=== PATIENT | female | born 1955 | race American Indian/Alaskan Native ===

== ENCOUNTER 2017-01-12 06:41 | Day surgery (SDC) | payer MEDICAID ==
[~2017-01-12 06:41] MED LIST: TETRACAINE 0.5% OS PRN
--- NOTE | 2017-01-12 07:52 | Anesthesia Consultation ---
Anesthesia Consult and Med Hx Date of service: 01/12/17 - Airway Anesthetic Teeth Evaluation: Good ROM Head & Neck: Adequate Mental/Hyoid Distance: Adequate Mallampati Class: Class II Intubation Access Assessment: Probably Good - Pulmonary Exam CTA: Yes - Cardiac Exam Cardiac Exam: RRR - Pre-Operative Health Status ASA Pre-Surgery Classification: ASA3 Proposed Anesthetic Plan: MAC - Pulmonary Hx Smoking: Yes (former) Hx Asthma: Yes - Cardiovascular System Hx Hypertension: Yes (20years) Hx Coronary Artery Disease: Yes Hx Heart Attack/AMI: Yes (2009) Hx Angina: No (denies chest pain and tightness) - Central Nervous System Hx Psychiatric Problems: No - Other Systems Hx Alcohol Use: No Hx Substance Use: No Hx Cancer: No
--- NOTE | 2017-01-12 07:52 | Anesthesia Day of Surgery ---
Anesthesia Day of Surgery - Day of Surgery Patient Examined: Yes Patient H&P Reviewed: Yes Patient is NPO: Yes
[2017-01-12] MEDS ORDERED: NACL BACTERIOSTATIC INFILTRATI ONE (08:18)
[2017-01-12] MEDS: AK-Dilate OS SCH ×3 (08:22→08:45)
[2017-01-12] MEDS: VIGAMOX OS SCH ×3 (08:22→08:45)
[2017-01-12] MEDS: MYDRIACYL OS SCH ×3 (08:22→08:45)
[2017-01-12] MEDS ORDERED: VERSED ONE (08:46)
[2017-01-12] MEDS ORDERED: SUBLIMAZE ONE (08:46)
[2017-01-12] MEDS ORDERED: NACL P/F VIAL (10 ML) 10 ML ONE (09:15)
--- NOTE | 2017-01-12 09:55 | Operative Report ---
Operative Report Operative Report: PATIENT'S NAME: DATE OF : DATE OF SURGERY: 01/12/2017 PREOPERATIVE DIAGNOSIS: Cataract left eye POSTOPERATIVE DIAGNOSIS: Same OPERATIVE PROCEDURE: Phacoemulsification with intraocular lens implantation, left eye SURGEON: Love Schwartz M.D. CHEERLEADING COACH SURGEON: Siri Lens: [id number] 20.0 D ANESTHESIA: Monitored anesthesia care in combination with topical and intracameral anesthesia because of the established specific risk of reflux, arrhythmias, or anxiety attacks associated with ocular manipulation, as well as the difficulty of the independent film maker to manage such potentially catastrophic events while simultaneously attempting to complete the surgical procedure and was deemed necessary for the patient's safety to have an Water Resources Program Director present during the procedure whenever possible. An Water Resources Program Director was utilized to regulate the intravenous sedation of the patient so the patient was cooperative yet not asleep in order for the patient to successfully maintain fixation of the eye on the operating light of the microscope. COMPLICATIONS: No surgical complications No blood loss. ALLERGIES: Sulfa codeine PROGNOSIS: Excellent INDICATIONS FOR SURGERY: The patient is undergoing surgery in the hopes of eliminating or improving these visual difficulties. PROCEDURE: After arriving at the surgery center, the patient was given topical anesthetic and dilating drops, as noted in the record. The patient was then taken into the operating room and given more anesthetic drops. The eyelids , lashes, and lid margins were scrubbed with Betadine solution, and the patient was draped. The Nurse Water Resources Program Director administered IV sedation and monitored the patient during the procedure. The eye was then fixated with a 0.12, and a stab incision was made in the peripheral clear cornea into the anterior chamber. This was made on my left side. Viscoelastic was next used to fill the anterior chamber. The eye was once again fixated with the 0.12 forceps and a keratome was used make an incision in clear cornea peripherally on my right hand side temporally. The capsule forceps were used to open the central anterior capsule and then make a continuous round capsulotomy. Hydrodissection was carried out utilizing a cannula and balanced salt solution to delineate the cortical material from the capsule and the nucleus from the cortical material. The phaco tip was introduced into the eye and used to remove the anterior cortical material in the area of the capsulotomy. Then the phaco tip was buried into the nucleus, and a chopping instrument was introduced into the eye and used to provide countertraction in the nucleus between this instrument and the phaco tip fracturing the nucleus. This procedure was repeated multiple times, providing multiple small segments of the lens, and then the phaco tip was used to remove each of these segments. An I/A tip was then used to remove the remaining cortex. The anterior chamber was refilled with viscoelastic. An one-piece, acrylic intraocular lens was then placed into an inserting cartridge. The tip of the inserting cartridge was introduced into the keratome incision and into the anterior chamber. The implant was gently advanced through the cartridge and into the eye, where it unfolded, and both haptics were placed in the capsular bag, where it centered nicely and appeared to be well fixated. After placement of the intraocular lens, the I~and~A handpiece was placed back into the eye and used to remove the viscoelastic, including viscoelastic that was behind the optic of the intraocular lens. The anterior chamber was then filled with balanced salt solution, and hydration of the wound was used to cause swelling of the wound and more appropriate watertight closure. When the wound was found to be firm, the patient was asked to comment on how bright the light was. If there was no light perception at all or if the light was substantially dimmer than during the rest of the surgery, the amount of fluid in the eye was decompressed to lower the intraocular pressure until the patient could see the bright light again. This was done to avoid any damage or decreased blood flow to the optic nerve. MEDICATIONS APPLIED AT END OF SURGERY: One drop of Pred Forte and Vigamox The patient was given a shield to wear at night and was instructed not to rub or push on the eye. DISCHARGE SUMMARY: The patient was released in stable condition. The patient and those with the patient were given a written sheet of postoperative instructions and counseling on any abnormal laboratory studies. The patient is to see us tomorrow for follow-up in the office and is to call immediately for any difficulties. Love Schwartz M.D. Date
--- NOTE | 2017-01-12 09:56 | Short Stay Summary ---
Short Stay Documentation Date of service: 01/12/17 - History H&P: obtained from office - Allergies and Medications Current Medications: Allergies codeine Allergy (Verified 01/12/17 08:48) Rash PT STATES SHE BREAKS OUT IN A COLD SWEAT AND HAS INCREASED HEART RATE. Sulfa (Sulfonamide Antibiotics) Allergy (Verified 01/12/17 08:48) Rash Home Medications Medication Instructions Recorded Confirmed Last Taken Type Albuterol Sulfate [Ventolin HFA] 2 puff IH PRN PRN 01/12/17 01/12/17 01/12/17 05 :30 History Aspirin [Lo-Dose Aspirin EC] 81 mg PO DAILY 01/12/17 01/12/17 01/11/17 History AtorvaSTATin [Lipitor] 40 mg PO QHS 01/12/17 01/12/17 01/11/17 History Bumetanide [Bumetanide] 1 tab PO PRN PRN 01/12/17 01/12/17 2 Weeks Ago History Carvedilol Nicu (1.67 mg/ml) 25 mg PO BID 01/12/17 01/12/17 01/11/17 22:00 History [Coreg NICU dilution] Chlorthalidone [Chlorthalidone] 1 tab PO DAILY 01/12/17 01/12/17 01/11/17 History Lisinopril [Lisinopril] 1 tab PO DAILY 01/12/17 01/12/17 01/11/17 History Nitroglycerin [Nitrostat] 0.4 mg SL Q5M PRN 01/12/17 01/12/17 3 Weeks Ago History Potassium Chloride [Klor-Con 8 meq PO DAILY 01/12/17 01/12/17 01/11/17 History Sprinkle] Active Medications Moxifloxacin HCl (Vigamox) 1 drops OS Q5MIN KURT Stop: 01/14/17 06:01 Last Admin: 01/12/17 08:45 Dose: 1 drops Phenylephrine HCl (Ak-Dilate) 1 drops OS Q5MIN KURT Stop: 01/14/17 06:01 Last Admin: 01/12/17 08:45 Dose: 1 drops Prednisolone Acetate (Pred Forte 1%) 1 drops OS QID KURT Tetracaine HCl (Tetracaine 0.5%) 1 drops OS Q5M PRN PRN Reason: Analgesia Last Admin: 01/12/17 08:21 Dose: 1 drops Tropicamide (Mydriacyl) 1 drops OS Q5MIN KURT Stop: 01/14/17 06:01 Last Admin: 01/12/17 08:45 Dose: 1 drops - Brief post op/procedure progress note Date of procedure: 01/12/17 Pre-op diagnosis: left cataract Post-op diagnosis: same Procedure: Phacoemulsification with intraocular lens insertion left eye Anesthesia: MAC Surgeon: VARUN WHITMORE Estimated blood loss: none Pathology: none Condition: stable - Disposition Condition at discharge: Good Disposition: DC-01 TO HOME OR SELFCARE - Discharge Diagnoses (1) Cataract Status: Resolved Qualifiers: Cataract type: age-related Age-related cataract type: nuclear Infantile/ juvenile cataract type: I Traumatic cataract type: T Complicated cataract type: C Secondary cataract type: S Laterality: left Qualified Code(s): H25.12 - Age-related nuclear cataract, left eye Short Stay Discharge Plan Follow up with: PRIMARY CARE, [Primary Care Provider] - 7 Days
[2017-01-12] MEDS ORDERED: PRED FORTE 1% OS SCH (10:00)
[2017-01-12 10:01] VITALS: BP 163/85
--- NOTE | 2017-01-12 10:44 | Post Anesthesia Evaluation ---
- Post Anesthesia Evaluation Patient Participated: Yes Airway Patent: Yes Stable Respiratory Function: Yes Temp > 96.8F: Yes Pain Manageable: Yes Adequeate Hydration: Yes Anesthesia Complications: No
[2017-01-12] MEDS ORDERED: PRED FORTE 1% ONE (13:00)
== END 2017-01-12 10:40 | disposition home or self-care (01) ==
LOC: OR 06:41
DX: H25.12 Age-related nuclear cataract, left eye (principal); J45.909 Unspecified asthma, uncomplicated; M19.90 Unspecified osteoarthritis, unspecified site; I10 Essential (primary) hypertension; I25.10 Atherosclerotic heart disease of native coronary artery without angina pectoris; I25.2 Old myocardial infarction; Z88.6 Allergy status to analgesic agent; Z88.2 Allergy status to sulfonamides; Z87.891 Personal history of nicotine dependence
CPT/HCPCS: 66984; J2250; J3010; V2632

== ENCOUNTER 2019-02-18 14:17 | Observation (INO) | payer MEDICAID ==
--- NOTE | 2019-02-18 14:42 | Emergency Department Report ---
Blank Doc - Documentation Documentation: 63-year-old female that presents with right ear ache and decreased hearing and also chest pain and SOB. This initial assessment/diagnostic orders/clinical plan/treatment(s) is/are subject to change based on patient's health status, clinical progression and re- assessment by fellow clinical providers in the ED. Further treatment and workup at subsequent clinical providers discretion. Patient/guardians urged not to elope from the ED as their condition may be serious if not clinically assessed and managed. Initial orders include: 1- Patient sent to MAIN ED for further evaluation and treatment 2- labs 3- CXR 4- EKG
[2019-02-18 15:52] LABS: Basophils % (Auto) 0.4 % (0.0-1.8); Eosinophils # (Auto) 0.1 K/mm3 (0.0-0.4); Eosinophils % (Auto) 1.6 % (0.0-4.3); Hematocrit 40.3 % (30.3-42.9); Hemoglobin 13.2 gm/dl (10.1-14.3); Lymphocytes # (Auto) 1.5 K/mm3 (1.2-5.4); Lymphocytes % (Auto) 22.2 % (13.4-35.0); Mean Corpuscular HGB Conc 33 % (30-34); Mean Corpuscular Volume 85 fl (79-97); Monocytes # (Auto) 0.4 K/mm3 (0.0-0.8); Monocytes % (Auto) 5.6 % (0.0-7.3); Platelet Count 283 K/mm3 (140-440); Red Blood Count 4.74 M/mm3 (3.65-5.03); Red Cell Distribution Width 13.4 % (13.2-15.2)
[2019-02-18 16:03] LABS: INR 0.97 (0.87-1.13)
--- NOTE | 2019-02-18 16:12 | XRay Report ---
CHEST 2 VIEWS INDICATION: Chest Pain. COMPARISON: None FINDINGS: Support devices: None. Heart: Within normal limits. Lungs/pleura: No acute air space or interstitial disease. No pneumothorax. Additional findings: None. IMPRESSION: No acute findings. Signer Name: Lewis Serrato Jr, MD Signed: 02/18/2019 4:07 PM Workstation Name: [id number]
[2019-02-18 16:14] LABS: Alanine Aminotransferase 22 units/L (7-56); Albumin 3.5 g/dL (3.9-5); BUN/Creatinine Ratio 13; Blood Urea Nitrogen 9 mg/dL (7-17); Calcium 9.2 mg/dL (8.4-10.2); Hemolysis Index 30
[2019-02-18] MEDS ORDERED: ASPIRIN 81 MG TAB CHEW PO ONE (22:06)
[2019-02-18] MEDS ORDERED: NITROGLYCERIN 0.4 MG TAB SUBL SL PRN (22:06)
--- NOTE | 2019-02-18 22:21 | Emergency Department Report ---
ED Neuro Deficit HPI - General Chief Complaint: Chest Pain Stated Complaint: CHEST PAIN/RT EAR CANT HEAR Time Seen by Provider: 02/18/19 14:40 Source: patient Mode of arrival: Ambulatory Limitations: No Limitations - History of Present Illness Initial Comments: Mrs. Cobb is a 63 yo female with hx of HTN, osteoarthritis, asthma, DVT, GERD, AMI s/p PCI/cardiac stent 2009, HTN who presents right ear hearing loss, unsteady gait and chest pressure. This morning, Mrs. Cobb awakened 2 AM. She noticed that she was unable to hear out of her right ear. She then developed nausea and unsteady gait. Subsequently she developed chest pressure and sweats. The hearing is improved but sporadically in and out. She's had persistent chest pressure 7 out of 10 throughout the day. She denies numbness and weakness. She denies blurry vision. Her gait did improve. She normally takes her blood pressure medications at night. She does not remember if she took her home medications last night. She does have not have a primary physician. She is followed by Dr. Neely skein spooler [facility]. In 2009 when she had her acute cardiac event, she underwent care at [facility]. -: This morning (02:00 AM) Location: ataxia, other (right-sided hearing loss) History of same: No Place: home Severity: moderate Improves With: time Worsens With: none On Anticoagulants: No (asprin only) Context: other (awakened with symptoms this morning) Associated Symptoms: chest pain, other (nausea, sweats, hearing loss) - Related Data Home Medications: Home Medications Medication Instructions Recorded Confirmed Last Taken Albuterol Sulfate [Ventolin HFA] 2 puff IH PRN PRN 01/12/17 01/12/17 01/12/17 05:30 Aspirin [Lo-Dose Aspirin EC] 81 mg PO DAILY 01/12/17 01/12/17 01/11/17 AtorvaSTATin [Lipitor] 40 mg PO QHS 01/12/17 01/12/17 01/11/17 Bumetanide 1 tab PO PRN PRN 01/12/17 01/12/17 2 Weeks Ago ~12/29/16 Chlorthalidone 1 tab PO DAILY 01/12/17 01/12/17 01/11/17 Lisinopril 1 tab PO DAILY 01/12/17 01/12/17 01/11/17 Nitroglycerin [Nitrostat] 0.4 mg SL Q5M PRN 01/12/17 01/12/17 3 Weeks Ago ~12/22/16 Potassium Chloride [Klor-Con 8 meq PO DAILY 01/12/17 01/12/17 01/11/17 Sprinkle] carvediloL NICU (1.67 MG/ML) 25 mg PO BID 01/12/17 01/12/17 01/11/17 22:00 [Coreg NICU dilution] Allergies/Adverse Reactions: Allergies Allergy/AdvReac Type Severity Reaction Status Date / Time codeine Allergy Rash Verified 01/12/17 08:48 Sulfa (Sulfonamide Allergy Rash Verified 01/12/17 08:48 Antibiotics) ED Review of Systems ROS: Stated complaint: CHEST PAIN/RT EAR CANT HEAR Other details as noted in HPI Comment: All other systems reviewed and negative Constitutional: denies: fever, malaise ENT: other (right ear hearing loss) Cardiovascular: chest pain Gastrointestinal: nausea Neurological: abnormal gait ED Past Medical Hx - Past Medical History Previous Medical History?: Yes Hx Hypertension: Yes (20years) Hx Heart Attack/AMI: Yes (2009) Hx Deep Vein Thrombosis: Yes (2014) Hx GERD: Yes Hx Arthritis: Yes (knees) Hx Asthma: Yes - Surgical History Past Surgical History?: Yes Hx Coronary Stent: Yes Hx Cholecystectomy: Yes - Family History Family history: CAD/[place], diabetes, hypertension, vascular disease - Social History Smoking Status: Never Smoker Substance Use Type: None Other Social History: disabled - Medications Home Medications: Home Medications Medication Instructions Recorded Confirmed Last Taken Type Albuterol Sulfate [Ventolin HFA] 2 puff IH PRN PRN 01/12/17 01/12/17 01/12/17 05:30 History Aspirin [Lo-Dose Aspirin EC] 81 mg PO DAILY 01/12/17 01/12/17 01/11/17 History AtorvaSTATin [Lipitor] 40 mg PO QHS 01/12/17 01/12/17 01/11/17 History Bumetanide 1 tab PO PRN PRN 01/12/17 01/12/17 2 Weeks Ago History ~12/29/16 Chlorthalidone 1 tab PO DAILY 01/12/17 01/12/17 01/11/17 History Lisinopril 1 tab PO DAILY 01/12/17 01/12/17 01/11/17 History Nitroglycerin [Nitrostat] 0.4 mg SL Q5M PRN 01/12/17 01/12/17 3 Weeks Ago History ~12/22/16 Potassium Chloride [Klor-Con 8 meq PO DAILY 01/12/17 01/12/17 01/11/17 History Sprinkle] carvediloL NICU (1.67 MG/ML) 25 mg PO BID 01/12/17 01/12/17 01/11/17 22:00 History [Coreg NICU dilution] ED Neuro Physical Exam - General Limitations: No Limitations General appearance: alert, in no apparent distress Suspected Stroke: Yes - Head Head exam: Present: atraumatic, normocephalic - Eye Eye exam: Present: normal appearance - ENT ENT exam: Present: mucous membranes moist, TM's normal bilaterally - Neck Neck exam: Present: normal inspection, full ROM - Respiratory Respiratory exam: Present: normal lung sounds bilaterally. Absent: respiratory distress, wheezes, rales, rhonchi - Cardiovascular Cardiovascular Exam: Present: regular rate, normal rhythm, normal heart sounds. Absent: systolic murmur, diastolic murmur, rubs, gallop - GI/Abdominal GI/Abdominal exam: Present: soft, normal bowel sounds. Absent: distended, tenderness, guarding, rebound - Extremities Exam Extremities exam: Present: normal inspection - Neurological Exam Neurological exam: Present: alert, oriented X3 - NIHSS Assessment Interval: Baseline 1a. Level of Consciousness: alert/keenly responsive 1b. LOC Questions: answers both correctly 1c. LOC Commands: performs tasks correctly 2. Best Gaze: normal 3. Visual: no visual loss 4. Facial Palsy: normal symmetrical movement 5b. Motor Arm Right: no drift 5a. Motor Arm Left: no drift 6a. Motor Leg Left: no drift 6b. Motor Leg Right: no drift 7. Limb Ataxia: absent 8. Sensory: normal 9. Best Language: no aphasia 10. Dysarthria: normal 11. Extinction/Inattention: no abnormality Total Score: 0 Stroke Severity: No Stroke Symptoms - Psychiatric Psychiatric exam: Present: normal affect, normal mood - Skin Skin exam: Present: warm, dry, intact, normal color. Absent: rash ED Course Vital Signs 02/18/19 02/18/19 02/18/19 14:39 19:15 21:15 Temperature 97.6 F Pulse Rate 97 H 91 H 99 H Respiratory 20 18 Rate Blood Pressure 190/105 Blood Pressure 182/110 [Right] O2 Sat by Pulse 98 99 Oximetry 02/18/19 02/18/19 02/18/19 21:30 21:46 22:00 Temperature Pulse Rate 94 H 91 H Respiratory 18 14 Rate Blood Pressure 156/96 156/96 156/96 Blood Pressure [Right] O2 Sat by Pulse 100 100 100 Oximetry 02/18/19 02/18/19 22:16 22:30 Temperature Pulse Rate Respiratory Rate Blood Pressure 165/98 165/98 Blood Pressure [Right] O2 Sat by Pulse 99 100 Oximetry - Lab Data Result diagrams: 02/18/19 15:08 02/18/19 15:08 Lab Results 02/18/19 02/18/19 02/18/19 Range/Units 15:08 15:08 15:08 WBC 6.7 (4.5-11.0) K/mm3 RBC 4.74 (3.65-5.03) M/mm3 Hgb 13.2 (10.1-14.3) gm/dl Hct 40.3 (30.3-42.9) % MCV 85 (79-97) fl MCH 28 (28-32) pg MCHC 33 (30-34) % RDW 13.4 (13.2-15.2) % Plt Count 283 (140-440) K/mm3 Lymph % (Auto) 22.2 (13.4-35.0) % [place] % (Auto) 5.6 (0.0-7.3) % Eos % (Auto) 1.6 (0.0-4.3) % Baso % (Auto) 0.4 (0.0-1.8) % Lymph # 1.5 (1.2-5.4) K/mm3 [place] # 0.4 (0.0-0.8) K/mm3 Eos # 0.1 (0.0-0.4) K/mm3 Baso # 0.0 (0.0-0.1) K/mm3 Seg Neutrophils % 70.2 H (40.0-70.0) % Seg Neutrophils # 4.7 (1.8-7.7) K/mm3 PT 12.8 (12.2-14.9) Sec. INR 0.97 (0.87-1.13) APTT 32.0 (24.2-36.6) Sec. Thrombin Time (15.1-19.6) Sec. Sodium 141 (137-145) mmol/L Potassium 4.6 (3.6-5.0) mmol/L Chloride 103.7 (98-107) mmol/L Carbon Dioxide 22 (22-30) mmol/L Anion Gap 20 mmol/L BUN 9 (7-17) mg/dL Creatinine 0.7 (0.7-1.2) mg/dL Estimated GFR > 60 ml/min BUN/Creatinine Ratio 13 % Glucose 107 H (65-100) mg/dL Calcium 9.2 (8.4-10.2) mg/dL Total Bilirubin 0.40 (0.1-1.2) mg/dL AST 28 (5-40) units/L ALT 22 (7-56) units/L Alkaline Phosphatase 91 (35-129) units/L Troponin T < 0.010 (0.00-0.029) ng/mL Total Protein 7.4 (6.3-8.2) g/dL Albumin 3.5 L (3.9-5) g/dL Albumin/Globulin Ratio 0.9 % 02/18/19 02/18/19 Range/Units 16:49 22:43 WBC (4.5-11.0) K/mm3 RBC (3.65-5.03) M/mm3 Hgb (10.1-14.3) gm/dl Hct (30.3-42.9) % MCV (79-97) fl MCH (28-32) pg MCHC (30-34) % RDW (13.2-15.2) % Plt Count (140-440) K/mm3 Lymph % (Auto) (13.4-35.0) % [place] % (Auto) (0.0-7.3) % Eos % (Auto) (0.0-4.3) % Baso % (Auto) (0.0-1.8) % Lymph # (1.2-5.4) K/mm3 [place] # (0.0-0.8) K/mm3 Eos # (0.0-0.4) K/mm3 Baso # (0.0-0.1) K/mm3 Seg Neutrophils % (40.0-70.0) % Seg Neutrophils # (1.8-7.7) K/mm3 PT 12.1 L (12.2-14.9) Sec. INR 0.90 (0.87-1.13) APTT 24.1 L (24.2-36.6) Sec. Thrombin Time 15.4 (15.1-19.6) Sec. Sodium (137-145) mmol/L Potassium (3.6-5.0) mmol/L Chloride (98-107) mmol/L Carbon Dioxide (22-30) mmol/L Anion Gap mmol/L BUN (7-17) mg/dL Creatinine (0.7-1.2) mg/dL Estimated GFR ml/min BUN/Creatinine Ratio % Glucose (65-100) mg/dL Calcium (8.4-10.2) mg/dL Total Bilirubin (0.1-1.2) mg/dL AST (5-40) units/L ALT (7-56) units/L Alkaline Phosphatase (35-129) units/L Troponin T < 0.010 (0.00-0.029) ng/mL Total Protein (6.3-8.2) g/dL Albumin (3.9-5) g/dL Albumin/Globulin Ratio % 02/18/19 22:22 EKG obtained 1425 Sinus tachycardia rate 100 normal axis normal intervals no ST elevation nonspecific T wave pattern poor R-wave progression in the anterior leads low voltage QRS - Radiology Data Radiology results: report reviewed Chest radiograph: No acute process CT angiogram of the chest and abdomen: No acute aortic dissection or aneurysm, dilated esophagus - Medical Decision Making 1. right sided hearing loss, unsteady gait: DDX: TIA/CVA, MS, peripheral laby rinthitis, tumor will need neuro w/u and neuro checks, ASA provided in the ED, due to time of onset of improving symptoms > 12 hours, TPA not indicated as CVA is indeed a leading consideration, teleneurologist evaluated patient in the emergency department. 2. CHest pressure with hx of AMI/PCI must consider ACS, but atypical with persistent pain at rest, CT angio abdomen/chest negative for acute aortic dissection, I have consulted Dr. Cota [place] Heart skein spooler on-call. He agreed to arrange for inpatient consultation. Difficult to unify the findings of chest pressure, hearing loss, unsteady gait, however, if HTN has been uncontrolled then malignant hypertension could be the ultimate cause of this symptoms Critical care attestation.: If time is entered above; I have spent that time in minutes in the direct care of this critically ill patient, excluding procedure time. ED Disposition Clinical Impression: TIA (transient ischemic attack), Acute coronary syndrome Disposition: 09 OP ADMIT IP TO THIS HOSP Is pt being admited?: Yes Does the pt Need Aspirin: No Condition: Stable
[2019-02-18 23:13] LABS: INR 0.9 (0.87-1.13)
[2019-02-18 23:14] LABS: Partial Thromboplastin Time 24.1 Sec. (24.2-36.6); Thrombin Time 15.4 Sec. (15.1-19.6)
--- NOTE | 2019-02-18 23:23 | Cat Scan Report ---
CT head without contrast INDICATION : Strokelike symptoms. TECHNIQUE: Axial imaging performed from the skull apex through the skull base without the use of con trast. All CT examinations performed at this facility utilize dose modulation, iterative reconstruct ion or weight-based dosing, when appropriate, to reduce radiation dose to as low as reasonably achiev able. COMPARISON: None FINDINGS: No acute intracranial hemorrhage or parenchymal abnormality. Ventricles are normal in si ze and appear symmetric. Soft tissues including the orbits appear normal. No acute osseous abnorm ality. Sinuses and mastoid air cells are clear. IMPRESSION: No acute abnormality. Signer Name: John Thacker MD Signed: 02/18/2019 11:19 PM Workstation Name: [id number]
--- NOTE | 2019-02-18 23:45 | History and Physical Report ---
History of Present Illness Date of examination: 02/18/19 History of present illness: 63-year-old woman with a history of hypertension, coronary artery disease, GERD comes to the ER complaining of decrease hearing in the right ear but symptoms have improved. Also complined of unsteady gait, no riningin in the eAR, URTI. Complaint of chest pain, in the epigastric area, feels like someone sitting on the chest, constant, intensity 5/10, no radiation, cannot identify exacerbating or relieving factor., Admits to nausea, shortness of breath, diaphoresis, No palpitation. She had a stress test done years ago My review of systemsr Constitutional: no weight loss, fever, chills Ears, eyes, nose, mouth and throat: no nasal congestion, no nasal discharge, no sinus pressure, blurry vision, diplopia Neck: No neck pain or rigidity. Cardiovascular: No palpitations Respiratory: No cough Gastrointestinal: No hematochezia, abdominal pain Genitourinary : no dysuria, frequency , hematuria Musculoskeletal: no muscle ache , joint pain Integumentary: no rash, no pruritis Neurological: no parathesias, focal weakness Endocrine: no cold or heat intolerance, no polyuria or polydipsia Hematologic/Lymphatic: no easy bruising, no easy bleeding, no gland swelling Allergic/Immunologic: no urticaria, no angioedema. PAST MEDICAL HISTORY :hypertension, coronary artery disease, GERD PAST SURGICAL HISTORY: Cholecystectomy SOCIAL HISTORY: No drugs, tobacco, alcohol FAMILY HISTORY: Hypertension Medications and Allergies Allergies Allergy/AdvReac Type Severity Reaction Status Date / Time codeine Allergy Rash Verified 01/12/17 08:48 Sulfa (Sulfonamide Allergy Rash Verified 01/12/17 08:48 Antibiotics) Home Medications Medication Instructions Recorded Confirmed Last Taken Type Albuterol Sulfate [Ventolin HFA] 2 puff IH PRN PRN 01/12/17 02/19/19 01/12/17 05:30 History Aspirin [Lo-Dose Aspirin EC] 81 mg PO DAILY 01/12/17 02/19/19 01/11/17 History AtorvaSTATin [Lipitor] 40 mg PO QHS 01/12/17 02/19/19 01/11/17 History Bumetanide 1 tab PO PRN PRN 01/12/17 02/19/19 2 Weeks Ago History ~12/29/16 Chlorthalidone 1 tab PO DAILY 01/12/17 02/19/19 01/11/17 History Lisinopril 1 tab PO DAILY 01/12/17 02/19/19 01/11/17 History Nitroglycerin [Nitrostat] 0.4 mg SL Q5M PRN 01/12/17 02/19/19 3 Weeks Ago History ~12/22/16 Potassium Chloride [Klor-Con 8 meq PO DAILY 01/12/17 02/19/19 01/11/17 History Sprinkle] carvediloL NICU (1.67 MG/ML) 25 mg PO BID 01/12/17 02/19/19 01/11/17 22:00 History [Coreg NICU dilution] Active Meds: Active Medications Nitroglycerin (Nitrostat) 0.4 mg SL .Q5MIN PRN PRN Reason: Chest Pain Exam - Physical Exam Narrative exam: Gen. appearance: Patient lying in bed, no apparent distress HEENT: Normocephalic, atraumatic, hearing intact, pupils equally round and reactive to light, extraocular movement intact, and no sclericterus,. No JVD or thyromegaly or nodule,neck supple, no carotid bruit ,mucous membranes moist, no exudate or erythema Heart: S1, S2, regular rate and rhythm Lungs: Clear bilaterally, breathing comfortable Abdomen: Positive bowel sounds, non-tender, nondistended, no organomegaly Extremity:no edema cyanosis, clubbing Skin: no rash, dry, warm Neuro: Oriented 3, cranial nerves II-12 intact, speech is fluent, motor and sensory intact - Constitutional Vitals: Temp Pulse Resp BP Pulse Ox 97.6 F 91 H 14 165/98 100 02/18/19 14:39 02/18/19 21:46 02/18/19 21:46 02/18/19 22:30 02/18/19 22:30 Results - Labs CBC & Chem 7: 02/19/19 04:42 02/19/19 04:42 Labs: Abnormal lab results 02/18/19 02/18/19 02/18/19 Range/Units 15:08 15:08 22:43 Seg Neutrophils % 70.2 H (40.0-70.0) % PT 12.1 L (12.2-14.9) Sec. APTT 24.1 L (24.2-36.6) Sec. Glucose 107 H (65-100) mg/dL Albumin 3.5 L (3.9-5) g/dL - Imaging and Cardiology CT scan - abdomen: report reviewed CT scan - chest: report reviewed CT scan - pelvis: report reviewed Assessment and Plan Assessment TIA Chest pain CAD Hypertension uncontrolled Plan Admit to medicine Obtain MRI of the head, and neck, echo Start aspirin, statin IV hydralazine as needed for blood pressure control Consult neurology, physical and occupational, speech therapy Check cardiac enzymes, stress test DVT prophylaxis
[2019-02-19] MEDS ORDERED: hydrALAZINE 20 MG/1 ML INJ IV PRN (01:45)
[2019-02-19] MEDS ORDERED: hydrALAZINE 20 MG/1 ML INJ ONE (02:08)
[2019-02-19] MEDS ORDERED: ACETAMINOPHEN 325 MG TAB PO PRN (02:30)
[2019-02-19] MEDS ORDERED: ONDANSETRON 4 MG/2 ML INJ IV PRN (02:30)
--- NOTE | 2019-02-19 03:34 | Consultation ---
History of Present Illness Consult date: 02/19/19 History of present illness: [facility] stroke Alert Impression: hearing loss and ataxia, with hTN, and systolic of 190/80 she has improved since that time, and she has chest pressure that has also developed throughout the day. CTA chest is negative. MRI and MRA head/neck is pending Recs: CTA chest - rule out dissection MRI brain and MRA head/neck when able ECHO A1c LDL HPI: Since 2 am pt has been ataxic this morning. She has htn. CT head Neuro: Alert and oriented, x 4, visual clemens normal. The paient is able to move all four extremities without an issue. HG - intact VF- intact Facial - intact UE, LE within normal No ataxia, aphasia, dysarthria, Medications and Allergies Allergies Allergy/AdvReac Type Severity Reaction Status Date / Time codeine Allergy Rash Verified 01/12/17 08:48 Sulfa (Sulfonamide Allergy Rash Verified 01/12/17 08:48 Antibiotics) Home Medications Medication Instructions Recorded Confirmed Last Taken Type Albuterol Sulfate [Ventolin HFA] 2 puff IH PRN PRN 01/12/17 02/19/19 01/12/17 05:30 History Aspirin [Lo-Dose Aspirin EC] 81 mg PO DAILY 01/12/17 02/19/19 01/11/17 History AtorvaSTATin [Lipitor] 40 mg PO QHS 01/12/17 02/19/19 01/11/17 History Bumetanide 1 tab PO PRN PRN 01/12/17 02/19/19 2 Weeks Ago History ~12/29/16 Chlorthalidone 1 tab PO DAILY 01/12/17 02/19/19 01/11/17 History Lisinopril 1 tab PO DAILY 01/12/17 02/19/19 01/11/17 History Nitroglycerin [Nitrostat] 0.4 mg SL Q5M PRN 01/12/17 02/19/19 3 Weeks Ago History ~12/22/16 Potassium Chloride [Klor-Con 8 meq PO DAILY 01/12/17 02/19/19 01/11/17 History Sprinkle] carvediloL NICU (1.67 MG/ML) 25 mg PO BID 01/12/17 02/19/19 01/11/17 22:00 History [Coreg NICU dilution] Active Meds: Active Medications Acetaminophen (Tylenol) 650 mg PO Q4H PRN PRN Reason: Pain MILD(1-3)/Fever >100.5/LEE Aspirin (Aspirin) 325 mg PO QDAY [facility] Atorvastatin Calcium (Lipitor) 40 mg PO QHS [facility] Enoxaparin Sodium (Enoxaparin) 40 mg SUB-Q QDAY [facility] Hydralazine HCl (Apresoline) 5 mg IV Q6H PRN PRN Reason: Hypertension Last Admin: 02/19/19 02:00 Dose: 5 mg Documented by: Nitroglycerin (Nitrostat) 0.4 mg SL .Q5MIN PRN PRN Reason: Chest Pain Ondansetron HCl (Zofran) 4 mg IV Q8H PRN PRN Reason: Nausea And Vomiting Sodium Chloride (Sodium Chloride Flush Syringe 10 Ml) 10 ml IV BID [facility] Sodium Chloride (Sodium Chloride Flush Syringe 10 Ml) 10 ml IV PRN PRN PRN Reason: LINE FLUSH Physical Examination - Vital Signs Vital Signs: Vital Signs Temp Pulse Resp BP Pulse Ox 97.6 F 97 H 20 190/105 98 02/18/19 14:39 02/18/19 14:39 02/18/19 14:39 02/18/19 14:39 02/18/19 14:39 Results - Laboratory Findings CBC and BMP: 02/18/19 15:08 02/18/19 15:08 Abnormal Lab Findings: Abnormal Labs 02/18/19 02/18/19 02/18/19 15:08 15:08 22:43 Seg Neutrophils % 70.2 H PT 12.1 L APTT 24.1 L Glucose 107 H Albumin 3.5 L
[2019-02-19 05:38] LABS: Basophils # (Auto) 0.1 K/mm3 (0.0-0.1); Basophils % (Auto) 1.2 % (0.0-1.8); Eosinophils # (Auto) 0.3 K/mm3 (0.0-0.4); Eosinophils % (Auto) 3.7 % (0.0-4.3); Hematocrit 37.2 % (30.3-42.9); Hemoglobin 12.3 gm/dl (10.1-14.3); Lymphocytes # (Auto) 2.2 K/mm3 (1.2-5.4); Lymphocytes % (Auto) 27.7 % (13.4-35.0); Mean Corpuscular HGB Conc 33 % (30-34); Mean Corpuscular Volume 85 fl (79-97); Monocytes # (Auto) 0.5 K/mm3 (0.0-0.8); Monocytes % (Auto) 6.7 % (0.0-7.3); Platelet Count 274 K/mm3 (140-440); Red Cell Distribution Width 13.5 % (13.2-15.2)
[2019-02-19 06:00] LABS: BUN/Creatinine Ratio 13; Blood Urea Nitrogen 8 mg/dL (7-17); Calcium 8.6 mg/dL (8.4-10.2); Hemolysis Index 4
[2019-02-19] MEDS ORDERED: REGADENOSON 0.4 MG/5 ML INJ IV ONE (08:28)
[2019-02-19] MEDS ORDERED: ACETAMINOPHEN 325 MG TAB ONE (08:48)
[2019-02-19] MEDS ORDERED: ASPIRIN 325 MG TAB PO SCH (10:00)
[2019-02-19] MEDS ORDERED: ENOXAPARIN 40 MG/0.4 ML INJ SUB-Q SCH (10:00)
--- NOTE | 2019-02-19 13:11 | Magnetic Resonance Report ---
NONENHANCED MR SCAN OF THE BRAIN: INDICATION / CLINICAL INFORMATION: stroke. Hearing loss on the right side; unsteady gait TECHNIQUE: Multiplanar, multisequence MR images of the brain were noncontrast MRI brain normal brain MR obtained . COMPARISON: CT scan obtained at on 02/18/2019 FINDINGS: BRAIN / INTRACRANIAL CONTENTS: No acute ischemia, acute hemorrhage, mass effect, midline shift, or hy drocephalus. No chronic infarct or atrophy. No significant white matter abnormality. In the 3-D fiesta images, 7th and 8th cranial nerve bundles are normal. Motion related artifacts obsc ure the details in the skin section images through the temporal bones. CRANIOCERVICAL JUNCTION: No significant abnormality. VASCULAR FLOW-VOIDS: No significant abnormality. ORBITS: No significant abnormality of visualized orbits. SINUSES / MASTOIDS: No significant abnormality of visualized sinuses and mastoid air cells. ADDITIONAL FINDINGS: None. IMPRESSION: 1. I do not see focal parenchymal lesion in the brain. 7th and 8th cranial nerve bundles are normal in Limited thin section images through the temporal bone s. Signer Name: Sher Shaw MD Signed: 02/19/2019 1:07 PM Workstation Name: [id number]
--- NOTE | 2019-02-19 13:13 | Magnetic Resonance Report ---
MRA HEAD WITHOUT CONTRAST HISTORY: Right-sided hearing loss COMPARISON: None. TECHNIQUE: Routine MRA of the head is performed. 3-D/MIP reformats postprocessed. CONTRAST: None. FINDINGS: Intracranial vertebral arteries: No significant abnormality. Basilar artery: No significant abnormality. Posterior cerebral arteries: No significant abnormality. Intracranial internal carotid arteries: No significant abnormality. Anterior cerebral arteries: No significant abnormality. Middle cerebral arteries: No significant abnormality. Variants and anomalies:None Additional findings: None. IMPRESSION: No significant abnormality. Signer Name: Sher Shaw MD Signed: 02/19/2019 1:09 PM Workstation Name: [id number]
--- NOTE | 2019-02-19 14:22 | Progress Note ---
Objective - Vital Sign Vital Signs - 12hr 02/19/19 02/19/19 02/19/19 03:30 03:40 03:50 Temperature 98.6 F Pulse Rate 93 H 92 H Respiratory 20 Rate Blood Pressure Blood Pressure 160/88 [Right] O2 Sat by Pulse 98 Oximetry 02/19/19 02/19/19 02/19/19 03:51 05:18 07:40 Temperature 98.3 F Pulse Rate 93 H 100 H Respiratory 18 18 Rate Blood Pressure 108/62 151/76 Blood Pressure [Right] O2 Sat by Pulse 100 96 Oximetry 02/19/19 02/19/19 02/19/19 08:50 09:01 09:42 Temperature Pulse Rate 94 H Respiratory 16 18 Rate Blood Pressure 171/87 171/87 Blood Pressure [Right] O2 Sat by Pulse Oximetry 02/19/19 02/19/19 02/19/19 10:04 10:05 10:06 Temperature Pulse Rate 106 H 103 H 101 H Respiratory Rate Blood Pressure 192/110 181/106 191/101 Blood Pressure [Right] O2 Sat by Pulse Oximetry 02/19/19 02/19/19 02/19/19 10:07 10:08 10:09 Temperature Pulse Rate 98 H 98 H Respiratory Rate Blood Pressure 181/95 194/101 194/101 Blood Pressure [Right] O2 Sat by Pulse Oximetry - Laboratory Findings CBC and BMP: 02/19/19 04:42 02/19/19 04:42 Abnormal Lab Findings: Abnormal Labs 02/18/19 02/18/19 02/18/19 15:08 15:08 22:43 Seg Neutrophils % 70.2 H PT 12.1 L APTT 24.1 L Chloride Creatinine Glucose 107 H Albumin 3.5 L 02/19/19 04:42 Seg Neutrophils % PT APTT Chloride 107.7 H Creatinine 0.6 L Glucose Albumin
--- NOTE | 2019-02-19 14:35 | Consultation ---
History of Present Illness Consult date: 02/19/19 Reason for Consult: Unsteady and hearing impairment History of present illness: According to pt. last monday she wake up 2 am with hearing impairment associated with unsteady gait she went back to bed to wake up again at 8 am with similar symptoms she noticed that her gait is unsteady and having hearing problem on right side , no previous hx of similar nature , no headache no blurred vision , she decided to come to hospital she noticed also associated chest discomfort Ct done in Er is unremarkable her BP initially [id number] CTA abdomen and chest was done to r/o abdominal aneurysm was remarkable for patulous esophagus cardiac enzymes are negative according to pt. she forgot to take her Bp med last night -monday night she is with hx of HTN,CVDX stent 2010,DVT,GERD,osteoarthritis MRI/MRA brain are unremarkable Medications and Allergies Allergies Allergy/AdvReac Type Severity Reaction Status Date / Time codeine Allergy Rash Verified 01/12/17 08:48 Sulfa (Sulfonamide Allergy Rash Verified 01/12/17 08:48 Antibiotics) Home Medications Medication Instructions Recorded Confirmed Last Taken Type Albuterol Sulfate [Ventolin HFA] 2 puff IH PRN PRN 01/12/17 02/19/19 01/12/17 05:30 History Aspirin [Lo-Dose Aspirin EC] 81 mg PO DAILY 01/12/17 02/19/19 01/11/17 History AtorvaSTATin [Lipitor] 40 mg PO QHS 01/12/17 02/19/19 01/11/17 History Bumetanide 1 tab PO PRN PRN 01/12/17 02/19/19 2 Weeks Ago History ~12/29/16 Chlorthalidone 1 tab PO DAILY 01/12/17 02/19/19 01/11/17 History Lisinopril 1 tab PO DAILY 01/12/17 02/19/19 01/11/17 History Nitroglycerin [Nitrostat] 0.4 mg SL Q5M PRN 01/12/17 02/19/19 3 Weeks Ago Histor y ~12/22/16 Potassium Chloride [Klor-Con 8 meq PO DAILY 01/12/17 02/19/19 01/11/17 History Sprinkle] carvediloL NICU (1.67 MG/ML) 25 mg PO BID 01/12/17 02/19/19 01/11/17 22:00 History [Coreg NICU dilution] Active Meds: Active Medications Acetaminophen (Tylenol) 650 mg PO Q4H PRN PRN Reason: Pain MILD(1-3)/Fever >100.5/LEE Last Admin: 02/19/19 08:50 Dose: 650 mg Documented by: Aspirin (Aspirin) 325 mg PO QDAY [facility] Last Admin: 02/19/19 13:31 Dose: 325 mg Documented by: Atorvastatin Calcium (Lipitor) 40 mg PO QHS [facility] Enoxaparin Sodium (Enoxaparin) 40 mg SUB-Q QDAY [facility] Last Admin: 02/19/19 13:32 Dose: 40 mg Documented by: Hydralazine HCl (Apresoline) 5 mg IV Q6H PRN PRN Reason: Hypertension Last Admin: 02/19/19 02:00 Dose: 5 mg Documented by: Nitroglycerin (Nitrostat) 0.4 mg SL .Q5MIN PRN PRN Reason: Chest Pain Ondansetron HCl (Zofran) 4 mg IV Q8H PRN PRN Reason: Nausea And Vomiting Sodium Chloride (Sodium Chloride Flush Syringe 10 Ml) 10 ml IV BID [facility] Last Admin: 02/19/19 13:33 Dose: 10 ml Documented by: Sodium Chloride (Sodium Chloride Flush Syringe 10 Ml) 10 ml IV PRN PRN PRN Reason: LINE FLUSH Review of Systems Constitutional: weight gain, fatigue Ears, nose, mouth and throat: decreased hearing Breasts: deferred Cardiovascular: chest pain Neurological: headaches Physical Examination - Vital Signs Vital Signs: Vital Signs Temp Pulse Resp BP Pulse Ox 97.6 F 97 H 20 190/105 98 02/18/19 14:39 02/18/19 14:39 02/18/19 14:39 02/18/19 14:39 02/18/19 14:39 - Constitutional General appearance: comfortable - EENT EENT: Present: PERRL - Respiratory Respiratory: Present: chest non-tender - Cardiovascular Cardiovascular: Present: regular rate, normal S1, normal S2 Extremities: Present: no peripheral edema bilatateraly - Gastrointestinal Gastrointestinal: Present: normoactive bowel sounds - Integumentary Integumentary: Present: normal - Neurologic Cranial nerve examination: PERRL, EOMI Fundoscopic examination: other (intact no papilledema) Sensorimotor examination: intact Detailed motor examination: grossly full strength in Reflexes: 1+: ankle, bicep, knee, tricep - Psychiatric Psychiatric: Present: mood/affect appropriate - Level of Consciousness 1a. Level of Consciousness: alert/keenly responsive - LOC Questions 1b. LOC Questions: answers both correctly - LOC Command 1c. LOC Commands: performs tasks correctly - Best Gaze 2. Best Gaze: normal - Visual 3. Visual: no visual loss - Facial Palsy 4. Facial Palsy: normal symmetrical movement - Motor Arm 5a. Motor Arm Left: no drift 5b. Motor Arm Right: no drift - Motor Leg 6a. Motor Leg Left: no drift 6b. Motor Leg Right: no drift - Limb Ataxia 7. Limb Ataxia: absent - Sensory 8. Sensory: normal - Best Language 9. Best Language: no aphasia - Dysarthria 10. Dysarthria: normal - Extinction and Inattention 11. Extinction/Inattention: no abnormality - Scoring Total Score: 0 Stroke Severity: No Stroke Symptoms Results - Laboratory Findings CBC and BMP: 02/19/19 04:42 02/19/19 04:42 Abnormal Lab Findings: Abnormal Labs 02/18/19 02/18/19 02/18/19 15:08 15:08 22:43 Seg Neutrophils % 70.2 H PT 12.1 L APTT 24.1 L Chloride Creatinine Glucose 107 H Albumin 3.5 L 02/19/19 04:42 Seg Neutrophils % PT APTT Chloride 107.7 H Creatinine 0.6 L Glucose Albumin Assessment and Plan Impression 1- This is 63 ys old female presented with BP 181/106 she is with complain of impaired hearing right ear and unsteady gait improved CT/MRI/MRA brain are unremrakkable finding from exam and hx are suggestive of hypertensive emergency 2-pt. forgot to take medication 3- Chest pain subsided with negative cardiac enzymes she is with hx of CADXstent 2009,hx of [place] 4- HTN,HLP 5- Morbid obesity 6- osteoarthritis 7- possible underlying sleep apnea PLAN 1- Control BP and comply with medications 2- TSH and consider sleep study 3- review Echo cardiogram 4- ASA81 mg and lipitor 40 mg 5- Increase activity as tolerated and try to loss weight case D/W pt. and finding explained to her will sign off
[2019-02-19] MEDS ORDERED: carvediloL 25 MG TAB PO SCH (16:00)
--- NOTE | 2019-02-19 16:21 | Discharge Summary ---
Providers - Providers Date of Admission: 02/18/19 23:45 Date of discharge: 02/19/19 Attending physician: EUGENE JO 02/18/19 22:23 Consult to Physician [CONS] Stat Comment: Consulting Provider: MAINE DUQUE Physician Instructions: Reason For Exam: ACS TIA 02/19/19 02:30 Consult to Physician [CONS] Routine Comment: PER DR JO Consulting Provider: FRED WHITT Physician Instructions: Reason For Exam: dec hearing, unsteady gait 02/19/19 02:42 Occupational Therapy Evaluate and Treat [CONS] Routine Comment: Reason For Exam: Neuro deficits Physical Therapy Evaluation and Treat [CONS] Routine Comment: Reason For Exam: Neuro deficits Primary care physician: AUTO PORTER Hospitalization Reason for admission: TIA, rule out acute stroke Condition: Stable Procedures: Echocardiogram: Showed EF of 50-55% MRI brain: Negative for acute findings Hospital course: Final discharge diagnosis: TIA, acute stroke ruled out Atypical Chest pain, probably 2/2 GERD, ACS ruled out H/o CAD Hypertension Morbid obesity with BMI of 55.1 Hospital course: Patient was admitted and placed on TIA/stroke protocol. Further evaluation with MRI brain was reported as negative for acute infarct. For the chest pain, serial troponin levels done were negative. She later underwent stress test, which was also reported as negative for acute ischemia. Subsequently, she improved clinically and was then deemed stable for discharge with clinic follow- up. Disposition: -01 TO HOME OR SELFCARE Time spent for discharge: 30 minutes Core Measure Documentation - Palliative Care Palliative Care/ Comfort Measures: Not Applicable - Core Measures Any of the following diagnoses?: none Exam - Constitutional Vitals: Temp Pulse Resp BP Pulse Ox 97.7 F 99 H 18 153/99 99 02/19/19 14:23 02/19/19 14:23 02/19/19 14:23 02/19/19 14:23 02/19/19 14:23 General appearance: Present: no acute distress, obese - EENT Eyes: Present: PERRL, EOM intact ENT: hearing intact, clear oral mucosa - Neck Neck: Present: supple, normal ROM - Respiratory Respiratory effort: normal Respiratory: bilateral: CTA - Cardiovascular Rhythm: regular Heart Sounds: Present: S1 & S2. Absent: rub, click - Extremities Extremities: No edema Peripheral Pulses: within normal limits - Abdominal General gastrointestinal: Present: soft, non-tender, non-distended, normal bowel sounds - Integumentary Integumentary: Present: clear, warm, dry - Musculoskeletal Musculoskeletal: gait normal, strength equal bilaterally - Psychiatric Psychiatric: appropriate mood/affect, intact judgment & insight - Neurologic Neurologic: CNII-XII intact, moves all extremities Plan Follow up with: PRIMARY CARE, [Primary Care Provider] - 3-5 Days
[2019-02-19] MEDS: CHLORTHALIDONE 25 MG TAB PO SCH ×2 (17:20→17:34)
--- NOTE | 2019-02-19 17:20 | Treadmill Report ---
THALLIUM STRESS TEST LEFT VENTRICLE: Left ventricular chamber size is within normal spread. Perfusion study demonstrates homogeneous uptake of the tracer in all segments, no significant defects identified. Gated analysis demonstrates well preserved left ventricular systolic function, ejection fraction 52%. CONCLUSION: Normal myocardial perfusion study. JOB# [id number] CA/NTS
[2019-02-20 03:58] VITALS: BP 163/88
--- NOTE | 2019-03-08 13:57 | Cat Scan Report ---
CTA of the chest and CTA of the abdomen with IV contrast. INDICATION / CLINICAL INFORMATION: chest pain hypertension. Severe chest and abdominal pain concerning for dissection TECHNIQUE: Axial CT images were obtained after injection of 100 mL IV contrast using CTA protocol of the chest a nd abdomen. 3 plane MIP / 3D reconstructions were produced. All CT scans at this location are perform ed using CT dose reduction for ALARA by means of automated exposure control. COMPARISON: None available. FINDINGS: CTA CHEST: No thoracic aortic aneurysm or dissection. Incidental note is made of a large amount of re flux throughout a slightly dilated esophagus. The lungs are clear. No pericardial or pleural effusion . Severe coronary artery calcification is noted CTA ABDOMEN: Scattered aphthous chronic calcification of a nondilated abdominal aorta. No thoracic ao rtic dissection. The celiac and SMA arteries are patent. Both renal arteries are patent. The MAE is p atent with some atherosclerotic disease of the origin. The liver, spleen, pancreas adrenal glands and kidneys are normal. Prior cholecystectomy. Slight anas arca. No ascites. IMPRESSION: No evidence of thoracic aortic aneurysm or dissection. No evidence of aortic aneurysm or dissection o f the upper abdomen, as above. Incidental note is made of a patulous dilated esophagus with prominent reflux. Signer Name: John Thacker MD Signed: 02/19/2019 1:38 AM Workstation Name: [id number]
== END 2019-02-19 18:45 | disposition home or self-care (01) ==
LOC: ED 14:17 → 4A 23:45
PROVIDERS: ADMIT Internal Medicine; ATTEND Internal Medicine
DX: G45.9 Transient cerebral ischemic attack, unspecified (principal); I24.9 Acute ischemic heart disease, unspecified; I25.10 Atherosclerotic heart disease of native coronary artery without angina pectoris; I10 Essential (primary) hypertension; K21.9 Gastro-esophageal reflux disease without esophagitis; M19.90 Unspecified osteoarthritis, unspecified site; J45.909 Unspecified asthma, uncomplicated; E66.01 Morbid (severe) obesity due to excess calories; Z90.49 Acquired absence of other specified parts of digestive tract; Z79.82 Long term (current) use of aspirin; Z86.718 Personal history of other venous thrombosis and embolism; Z95.1 Presence of aortocoronary bypass graft; Z68.43 Body mass index [BMI] 50.0-59.9, adult
CPT/HCPCS: 36415; 70450; 70544; 70551; 71046; 71275; 74175; 78452; 80048; 80053; 84443; 84484; 85025; 85610; 85670; 85730; 93005; 93010; 93017; 93306; 96372; 96374; 97165; 99284; A9502; G0378; J0360; J1650; J2785; Q9967